=== PATIENT | male | born 1965 | race Two or more races ===

== ENCOUNTER 2019-03-08 12:10 | Emergency (ER) | payer SELFPAY ==
[~2019-03-08] VITALS: Ht 165.1 cm; Wt 81.0 kg
[2019-03-08 12:13] VITALS: BP 128/83
[2019-03-08] MEDS ORDERED: LIDOCAINE HCL/EPINEPHRINE 1%-EPI 1:100,000 20 ML VIAL IJ SCH (12:40)
[2019-03-08] MEDS ORDERED: LIDOCAINE 1%/EPI 1:100,000 10 ML VIAL IJ ONE (12:45)
== END 2019-03-08 13:32 | disposition home or self-care (01) ==
LOC: ER 12:36
DX: S61.512A Laceration without foreign body of left wrist, initial encounter (principal); W26.0XXA Contact with knife, initial encounter; Y93.89 Activity, other specified; Y92.89 Other specified places as the place of occurrence of the external cause; Y99.0 Civilian activity done for income or pay; R03.0 Elevated blood-pressure reading, without diagnosis of hypertension
CPT/HCPCS: 12002; 99283; J3490